=== PATIENT | female | born 1975 | race Caucasian/White ===

== ENCOUNTER 2017-12-16 12:09 | Emergency (ER) | payer OTHER ==
[2017-12-16 12:32] LABS: POC GLUCOSE 131 mg/dL (70-99)
[2017-12-16 12:40] LABS: ADD MAN DIFF? NO
[2017-12-16 12:46] LABS: BASO # 0.1 x10^3/uL (0.0-0.2); BASO % 1 % (0-3); EOS # 0.2 x10^3/uL (0.0-0.7); EOS % 3 % (0-3); HEMATOCRIT 38.8 % (36.0-47.0); LYMPH # 2.2 x10^3/uL (1.0-4.8); LYMPH % 37 % (24-48); MEAN CORPUSCULAR HEMOGLOBIN 31 pg (25-35); MEAN CORPUSCULAR HGB CONC 34 g/dL (31-37); MEAN CORPUSCULAR VOLUME 91 fL (79-100); MONO # 0.4 x10^3/uL (0.0-1.1); MONO % 7 % (0-9); NEUT # 3.1 x10^3uL (1.8-7.7); NEUT % 52 % (31-73); PLATELET COUNT 253 x10^3/uL (140-400); RED BLOOD COUNT 4.24 x10^6/uL (3.50-5.40); RED CELL DISTRIBUTION WIDTH 12.3 % (11.5-14.5)
[2017-12-16] MEDS: IV NORMAL SALINE 1000ML BAG 1,000 ML IV (12:49)
[2017-12-16 13:00] LABS: D-DIMER < 0.27 ug/mlFEU (0.00-0.50)
[2017-12-16 13:06] LABS: ANION GAP 13 (6-14); BLOOD UREA NITROGEN 6 mg/dL (7-20); BUN/CREATININE RATIO 8 (6-20); CALCIUM 8.7 mg/dL (8.5-10.1); CARBON DIOXIDE 25 mmol/L (21-32); CHLORIDE 99 mmol/L (98-107); CREATININE 0.8 mg/dL (0.6-1.0); GFR 79.4; GLUCOSE 149 mg/dL (70-99); POTASSIUM 3.2 mmol/L (3.5-5.1); SODIUM 137 mmol/L (136-145)
[2017-12-16 13:11] LABS: ALBUMIN 4.3 g/dL (3.4-5.0); ALBUMIN/GLOBULIN RATIO 1.1 (1.0-1.7); ALK PHOS 44 U/L (46-116); ALT (SGPT) 18 U/L (14-59); AST (SGOT) 12 U/L (15-37); TOTAL BILIRUBIN 0.9 mg/dL (0.2-1.0); TOTAL PROTEIN 8.3 g/dL (6.4-8.2)
[2017-12-16 13:19] LABS: NEG OBC UR NEG; POS OBC UR POS; U PREG PATIENT NEGATIVE (NEG)
== END 2017-12-16 14:43 | disposition home or self-care (01) ==
LOC: ER 12:09
DX: E86.0 Dehydration (principal); B34.9 Viral infection, unspecified
CPT/HCPCS: 36415; 71046; 80053; 81025; 82962; 85025; 85379; 93005; 96360; 99285-25; J7030